=== PATIENT | male | born 1975 | race Two or more races ===

== ENCOUNTER 2019-04-21 21:51 | Emergency (ER) | payer MEDICAID ==
[~2019-04-21] VITALS: Ht 157.5 cm; Wt 76.2 kg
[2019-04-21] MEDS ORDERED: LEVE500T20 PO (22:00)
[2019-04-21] MEDS ORDERED: PANT40TA4 PO (22:00)
[2019-04-21] MEDS ORDERED: INSU100V7 SQ (22:00)
[2019-04-21] MEDS ORDERED: SODI650T PO (22:00)
[2019-04-21] MEDS ORDERED: INSU100C SQ (22:00)
[2019-04-21] MEDS ORDERED: QUET100T PO (22:00)
[2019-04-21] MEDS ORDERED: FOLI1TAB16 PO (22:00)
[2019-04-21] MEDS ORDERED: FURO80TA3 PO (22:00)
[2019-04-21] MEDS ORDERED: VIT1TABL44 PO (22:00)
[2019-04-21] MEDS ORDERED: LABE100T5 PO (22:00)
[2019-04-21] MEDS ORDERED: AMLO5TAB9 PO (22:00)
[2019-04-21] MEDS ORDERED: ACET160L33 PO (22:02)
[2019-04-21] MEDS ORDERED: SENN-168 PO (22:02)
[2019-04-21 22:17] LABS: BASOPHILS # (AUTO) 0.1 K/uL (0.0-8.0); EOSINOPHILS # (AUTO) 0.2 K/uL (0.0-0.7); EOSINOPHILS % (AUTO) 2.6 % (0.0-7.0); HEMATOCRIT 28.4 % (36.7-47.1); HEMOGLOBIN 9.3 g/dL (12.5-16.3); LYMPHOCYTES # (AUTO) 1.6 K/uL (20.0-40.0); LYMPHOCYTES % (AUTO) 26.6 % (20.5-51.5); MEAN CORPUSCULAR HEMOGLOBIN 26.4 uug (23.8-33.4); MEAN CORPUSCULAR HGB CONC 33 g/dL (32.5-36.3); MONOCYTES # (AUTO) 0.7 K/uL (2.0-10.0); MONOCYTES % (AUTO) 12.3 % (0.0-11.0); NEUTROPHILS # (AUTO) 3.3 K/uL (1.8-8.9); NEUTROPHILS % (AUTO) 57.5 % (38.5-71.5); PLATELET COUNT (AUTO) 170 K/uL (152-348); RED BLOOD CELL COUNT(AUTO) 3.51 MIL/uL (4.06-5.63); WHITE BLOOD COUNT (AUTO) 5.8 K/uL (3.6-10.2)
[2019-04-21 22:27] LABS: CARBON DIOXIDE 33 mmol/L (21-32); CHLORIDE 100 mmol/L (98-107); CREATININE 2.5 mg/dL (0.6-1.3); GLUCOSE 176 mg/dL (74-106); POTASSIUM 3.8 mmol/L (3.5-5.1); UREA NITROGEN, BLOOD 41 mg/dL (7-18)
[2019-04-21 22:30] LABS: MAGNESIUM 1.3 mg/dL (1.8-2.4); PHOSPHOROUS 4.6 mg/dL (2.5-4.9)
[2019-04-21 22:33] LABS: ALANINE AMINOTRANSFERASE 29 U/L (16-63); ALKALINE PHOSPHATASE 95 U/L (50-136); ASPARTATE AMINOTRANSFERASE 35 U/L (15-37); BILIRUBIN,DIRECT 0.1 mg/dL (0.0-0.2); BILIRUBIN,TOTAL 0.3 mg/dL (0.2-1.0); TOTAL PROTEIN, SERUM 6.7 g/dL (6.4-8.2)
--- NOTE | 2019-04-21 22:36 | NUR ---
Seizure precautions implemented. Side rail paddings applied to side rails of patients bed.
[2019-04-21 22:40] LABS: ETHANOL < 3 MG/DL (0-0)
--- NOTE | 2019-04-22 01:11 | NUR ---
Gilma from [facility] called and gave information for patient transfer. Patient will be going to [facility], room 306A, number to call for report [phone].
--- NOTE | 2019-04-22 01:32 | NUR ---
Suad contacted. ETA [id number] Trip#[id number]
--- NOTE | 2019-04-22 01:53 | NUR ---
Spoke to Susannah, from [facility] to give report. Admitting physician, Dr. Soto.
--- NOTE | 2019-04-22 02:46 | NUR ---
Ambulance here to picker and packer patient to transfer to [facility]. patient in stable cnodition. Patient VS WNL. patient alert and orineted and denies any pain/discomfort at this time. All belongings and exit care package taken with patient. Patient information and medical reocrds given to EMT.
== END 2019-04-22 02:46 | disposition short-term general hospital (02) ==
LOC: ER 21:55
DX: G40.909 Epilepsy, unspecified, not intractable, without status epilepticus (principal); N18.9 Chronic kidney disease, unspecified; K21.9 Gastro-esophageal reflux disease without esophagitis; E11.9 Type 2 diabetes mellitus without complications; Z88.5 Allergy status to narcotic agent; Z79.899 Other long term (current) drug therapy; Z79.4 Long term (current) use of insulin
CPT/HCPCS: 36415; 80048; 80076; 80299; 83735; 84100; 85025; 85730; 93005; 99285; G0480; A4663